=== PATIENT | male | born 1965 | race Caucasian/White ===

== ENCOUNTER 2021-05-14 08:43 | Outpatient (CLI) | payer BC | END 2021-05-14 08:44 | disposition home or self-care (01) | LOC: DTY/OP 08:43 | PROVIDERS: ATTEND Surgery | DX: M89.49 Other hypertrophic osteoarthropathy, multiple sites (principal); Z68.44 Body mass index [BMI] 60.0-69.9, adult | CPT/HCPCS: 97802 ==

== ENCOUNTER 2022-06-25 12:33 | Inpatient (IN) | payer BC ==
[2022-06-25] MEDS ORDERED: Magnesium 2 GM/50 ML BAG (IN WATER) ONE (12:54)
[2022-06-25 13:18] LABS: #Eosinphils 0.1 thou/uL (0.0-0.7); #Lymphocytes 0.6 thou/uL (1.20-3.40); #Monocytes 0.5 thou/uL (0.11-0.59); #Neutrophils 4.2 thou/uL (1.40-6.50); %Basophils 0.3 % (0.0-1.0); %Eosinophils 1.3 % (0.0-10.0); %Lymphocytes 11.6 % (21.0-51.0); %Neutrophils 77.8 % (42.0-75.0); Mean Corpuscular HGB CONC 32.6 g/dL (32.0-36.0); Mean Corpuscular Hemoglobin 30.6 pg (27.0-31.0); Mean Corpuscular Volume 93.8 fl (78.0-98.0); Mean Platelet Volume 7.4 fL (7.4-10.4); Platelet Count 245 10x3/uL (130-400); RBC Distribution Width 12.3 % (11.5-14.5); Red Blood Cell (RBC) Count 4.25 mill/uL (4.70-6.10); White Blood Cell (WBC) Count 5.4 10x3/uL (4.8-10.8)
[2022-06-25 13:41] LABS: ALT (SGPT) 16 U/L (8-55); AST (SGOT) 17 U/L (5-34); Albumin 3.4 g/dL (3.5-5.0); Alkaline Phosphatase 120 U/L (40-110); Anion Gap 15 mmol/L (10-20); BUN (Urea Nitrogen) 12 mg/dL (8.4-25.7); Bilirubin, Total 1.4 mg/dL (0.2-1.2); Calc. Creatinine Clearance 0 mL/min (70-130); Carbon Dioxide 26 mmol/L (22-29); Chloride 101 mmol/L (98-107); Estimated GFR 106; Globulin 2.8 g/dL (2.4-3.5); Glucose 109 mg/dL (70-105); Lipase 21 U/L (8-78); Magnesium 1.9 mg/dL (1.6-2.6); Potassium 3.6 mmol/L (3.5-5.1); Protein, Total 6.2 g/dL (6.0-8.3); Sodium 138 mmol/L (136-145)
[2022-06-25 13:43] LABS: INR-International Normal Ratio 1.1; Prothrombin Time 14.6 sec (12.0-14.7)
[2022-06-25 13:44] LABS: PTT 36.6 sec (22.9-36.1)
[2022-06-25] MEDS ORDERED: Diltiazem 125 MG/25 ML ONE (13:46)
[2022-06-25 14:06] LABS: CKMB 1.2 ng/mL (0-6.6)
[2022-06-25] MEDS ORDERED: Heparin 10,000 UNITS/ 10 ML VIAL ONE (14:07)
[2022-06-25] MEDS ORDERED: Heparin 25,000 units/D5W 500 ML ONE (14:07)
[2022-06-25] MEDS ORDERED: Aspirin Chewable 81 MG TAB ONE (14:07)
[2022-06-25] MEDS ORDERED: Diltiazem 125 MG in Sodium Chloride 0.9% 100 ML IVPB SCH (16:30)
[2022-06-25] MEDS ORDERED: Piperacillin/Tazobactam 3.375 GM in Sodium Chloride 0.9% 100 ML IVPB SCH (17:15)
[2022-06-25] MEDS ORDERED: Heparin 10,000 UNITS/ 10 ML VIAL SLOW IVP SCH (17:15)
[2022-06-25] MEDS ORDERED: Diltiazem HCl 125 MG, Admixture Fee 1 EACH in Sodium Chloride 0.9% 100 ML IVPB SCH (17:15)
[2022-06-25 17:52] LABS: Phosphorus 3.2 mg/dL (2.3-4.7)
[2022-06-25] MEDS ORDERED: Piperacillin/Tazobactam 4.5 GM in Sodium Chloride 0.9% 100 ML IVPB SCH (18:00)
[2022-06-25 18:12] LABS: Troponin I 0.339 ng/mL (< 0.028)
[2022-06-25] MEDS: Benzonatate 100 MG CAP PO PRN (20:51)
[2022-06-25] MEDS: rOPINIRole HCl 2 MG TAB PO SCH (20:51)
[2022-06-25] MEDS: Melatonin 3 MG TAB PO PRN (20:51)
[2022-06-25] MEDS: Piperacillin/Tazobactam 3.375 GM in Sodium Chloride 0.9% 100 ML IVPB SCH (23:36)
[2022-06-25] MEDS: Heparin 25,000 units/D5W 500 ML IV SCH (23:39)
[2022-06-26 04:50] LABS: #Eosinphils 0.1 thou/uL (0.0-0.7); #Lymphocytes 0.8 thou/uL (1.20-3.40); #Monocytes 0.7 thou/uL (0.11-0.59); #Neutrophils 5.4 thou/uL (1.40-6.50); %Basophils 0.3 % (0.0-1.0); %Eosinophils 1.8 % (0.0-10.0); %Lymphocytes 11.5 % (21.0-51.0); %Neutrophils 76.3 % (42.0-75.0); Hemoglobin 11.9 g/dL (14.0-18.0); Mean Corpuscular HGB CONC 32.3 g/dL (32.0-36.0); Mean Corpuscular Volume 92.9 fl (78.0-98.0); Mean Platelet Volume 7.4 fL (7.4-10.4); Platelet Count 220 10x3/uL (130-400); RBC Distribution Width 12.4 % (11.5-14.5); Red Blood Cell (RBC) Count 3.97 mill/uL (4.70-6.10); White Blood Cell (WBC) Count 7.1 10x3/uL (4.8-10.8)
[2022-06-26 05:10] LABS: ALT (SGPT) 15 U/L (8-55); AST (SGOT) 15 U/L (5-34); Albumin 3.2 g/dL (3.5-5.0); Alkaline Phosphatase 114 U/L (40-110); Anion Gap 13 mmol/L (10-20); BUN (Urea Nitrogen) 12 mg/dL (8.4-25.7); Bilirubin, Total 1.7 mg/dL (0.2-1.2); Calc. Creatinine Clearance 379 mL/min (70-130); Calcium 8.4 mg/dL (7.8-10.44); Carbon Dioxide 26 mmol/L (22-29); Cardiac Risk 2.5 (Less than 4.5); Chloride 102 mmol/L (98-107); Cholesterol 130 mg/dl (< 200 Desired); Estimated GFR 109; Globulin 2.1 g/dL (2.4-3.5); Glucose 115 mg/dL (70-105); HDL Cholesterol 51 mg/dL (>60 Neg Risk); LDL Cholesterol, Calculated 70 mg/dL; Potassium 3.5 mmol/L (3.5-5.1); Protein, Total 5.3 g/dL (6.0-8.3); Sodium 137 mmol/L (136-145); Triglycerides 43 mg/dL (Less than 150)
[2022-06-26] MEDS: Piperacillin/Tazobactam 3.375 GM in Sodium Chloride 0.9% 100 ML IVPB SCH (06:13)
[2022-06-26] MEDS ORDERED: Diclofenac 1% 100 GM GEL TP PRN (10:21)
[2022-06-26] MEDS: rOPINIRole HCl 2 MG TAB PO SCH ×2 (10:23→21:01)
[2022-06-26] MEDS: Heparin 25,000 units/D5W 500 ML IV SCH ×2 (10:23→23:38)
[2022-06-26] MEDS: Acetaminophen 325 MG TAB PO PRN (12:31)
[2022-06-26] MEDS ORDERED: Magnesium Sulfate 3 GM in Sodium Chloride 0.9% 100 ML IVPB SCH (13:15)
[2022-06-26] MEDS ORDERED: Empagliflozin 10 MG TAB PO SCH (14:00)
[2022-06-26] MEDS ORDERED: Potassium Chloride 20 MEQ TAB PO SCH (14:00)
[2022-06-26] MEDS: Benzonatate 100 MG CAP PO PRN ×2 (14:22→21:01)
[2022-06-26] MEDS: Amiodarone 200 MG TAB PO SCH ×2 (14:23→21:00)
[2022-06-26] MEDS ORDERED: Amiodarone 200 MG TAB PO SCH (15:00)
[2022-06-26] MEDS ORDERED: guaiFENesin ER 600 MG TAB PO SCH (18:00)
[2022-06-26] MEDS: Melatonin 3 MG TAB PO PRN (21:01)
[2022-06-26] MEDS ORDERED: Promethazine HCl 12.5 MG in Sodium Chloride 0.9% 50 ML IVPB PRN (22:43)
[2022-06-27 07:54] LABS: #Eosinphils 0.2 thou/uL (0.0-0.7); #Lymphocytes 0.7 thou/uL (1.20-3.40); #Monocytes 0.6 thou/uL (0.11-0.59); #Neutrophils 5.3 thou/uL (1.40-6.50); %Eosinophils 2.9 % (0.0-10.0); %Lymphocytes 9.9 % (21.0-51.0); %Monocytes 9.4 % (0.0-10.0); %Neutrophils 77.8 % (42.0-75.0); Mean Corpuscular HGB CONC 32.4 g/dL (32.0-36.0); Mean Corpuscular Hemoglobin 30.9 pg (27.0-31.0); Mean Corpuscular Volume 95.5 fl (78.0-98.0); Mean Platelet Volume 7.4 fL (7.4-10.4); Platelet Count 230 10x3/uL (130-400); RBC Distribution Width 12.5 % (11.5-14.5); Red Blood Cell (RBC) Count 4.22 mill/uL (4.70-6.10); White Blood Cell (WBC) Count 6.8 10x3/uL (4.8-10.8)
[2022-06-27 08:15] LABS: Anion Gap 12 mmol/L (10-20); BUN (Urea Nitrogen) 8 mg/dL (8.4-25.7); Calc. Creatinine Clearance 372 mL/min (70-130); Calcium 8.9 mg/dL (7.8-10.44); Carbon Dioxide 26 mmol/L (22-29); Chloride 103 mmol/L (98-107); Estimated GFR 110; Glucose 98 mg/dL (70-105); Magnesium 2.2 mg/dL (1.6-2.6); Phosphorus 3.5 mg/dL (2.3-4.7); Potassium 3.8 mmol/L (3.5-5.1); Sodium 137 mmol/L (136-145)
[2022-06-27] MEDS ORDERED: Diltiazem HCl 125 MG, Admixture Fee 1 EACH in Sodium Chloride 0.9% 100 ML IVPB SCH (08:25)
[2022-06-27] MEDS ORDERED: Potassium Chloride 20 MEQ TAB PO SCH ×2 (08:30→14:15)
[2022-06-27] MEDS ORDERED: guaiFENesin ER 600 MG TAB PO SCH (09:00)
[2022-06-27] MEDS: Cholecalciferol 1,000 UNITS (25 MCG) TAB PO SCH (09:29)
[2022-06-27] MEDS: Apixaban 5 MG TAB PO SCH ×2 (09:29→21:43)
[2022-06-27] MEDS: Cyanocobalamin (Vitamin B-12) 1,000 MCG TAB PO SCH (09:30)
[2022-06-27] MEDS: Amiodarone 200 MG TAB PO SCH ×3 (09:30→21:42)
[2022-06-27] MEDS: Benzonatate 100 MG CAP PO PRN ×2 (09:38→21:43)
[2022-06-27] MEDS: rOPINIRole HCl 2 MG TAB PO SCH ×2 (09:39→21:43)
[2022-06-27] MEDS ORDERED: Polyethylene Glycol 3350 17 GM Packet PO PRN (11:55)
[2022-06-27] MEDS ORDERED: Polyethylene Glycol 3350 17 GM Packet PO SCH (12:00)
[2022-06-27] MEDS: Empagliflozin 25 MG TAB PO SCH (12:43)
[2022-06-27] MEDS: Scopolamine 1.5 mg/72 hour Patch TD SCH (12:49)
[2022-06-27] MEDS: Diltiazem HCl 125 MG, Admixture Fee 1 EACH in Sodium Chloride 0.9% 100 ML IVPB SCH (13:41)
[2022-06-27] MEDS ORDERED: Furosemide 40 MG/4 ML VIAL SLOW IVP SCH (14:15)
[2022-06-27] MEDS: Acetaminophen 325 MG TAB PO PRN (21:42)
[2022-06-27] MEDS: Melatonin 3 MG TAB PO PRN (21:43)
[2022-06-28] MEDS: Diltiazem HCl 125 MG, Admixture Fee 1 EACH in Sodium Chloride 0.9% 100 ML IVPB SCH ×2 (03:03→20:35)
[2022-06-28 04:49] LABS: #Eosinphils 0.2 thou/uL (0.0-0.7); #Lymphocytes 0.7 thou/uL (1.20-3.40); #Monocytes 0.8 thou/uL (0.11-0.59); #Neutrophils 4.5 thou/uL (1.40-6.50); %Basophils 0.3 % (0.0-1.0); %Eosinophils 3.6 % (0.0-10.0); %Lymphocytes 11.7 % (21.0-51.0); %Monocytes 12.7 % (0.0-10.0); %Neutrophils 71.7 % (42.0-75.0); Hemoglobin 12.8 g/dL (14.0-18.0); Mean Corpuscular HGB CONC 31.8 g/dL (32.0-36.0); Mean Corpuscular Hemoglobin 30.1 pg (27.0-31.0); Mean Corpuscular Volume 94.8 fl (78.0-98.0); Mean Platelet Volume 7.2 fL (7.4-10.4); Platelet Count 237 10x3/uL (130-400); RBC Distribution Width 12.5 % (11.5-14.5); Red Blood Cell (RBC) Count 4.25 mill/uL (4.70-6.10); White Blood Cell (WBC) Count 6.3 10x3/uL (4.8-10.8)
[2022-06-28 05:09] LABS: Anion Gap 12 mmol/L (10-20); BUN (Urea Nitrogen) 9 mg/dL (8.4-25.7); Calc. Creatinine Clearance 367 mL/min (70-130); Carbon Dioxide 26 mmol/L (22-29); Chloride 102 mmol/L (98-107); Estimated GFR 109; Glucose 101 mg/dL (70-105); Magnesium 2.2 mg/dL (1.6-2.6); Potassium 4.2 mmol/L (3.5-5.1); Sodium 136 mmol/L (136-145)
[2022-06-28] MEDS: Furosemide 40 MG/4 ML VIAL SLOW IVP SCH ×2 (06:27→15:09)
[2022-06-28] MEDS: Potassium Chloride 20 MEQ TAB PO SCH ×2 (10:33→16:09)
[2022-06-28] MEDS: Cholecalciferol 1,000 UNITS (25 MCG) TAB PO SCH (10:34)
[2022-06-28] MEDS: Calcium Carbonate 500 MG ChewTAB PO SCH ×2 (10:34→20:24)
[2022-06-28] MEDS: Apixaban 5 MG TAB PO SCH ×2 (10:34→20:25)
[2022-06-28] MEDS: rOPINIRole HCl 2 MG TAB PO SCH ×2 (10:35→20:24)
[2022-06-28] MEDS: Cyanocobalamin (Vitamin B-12) 1,000 MCG TAB PO SCH (10:35)
[2022-06-28] MEDS: Famotidine 20 MG TAB PO SCH ×2 (10:35→20:25)
[2022-06-28] MEDS: Empagliflozin 25 MG TAB PO SCH (10:35)
[2022-06-28] MEDS: Amiodarone 200 MG TAB PO SCH ×3 (10:48→20:24)
[2022-06-28] MEDS ORDERED: diphenhydrAMINE 25 MG CAP PO PRN (16:19)
[2022-06-28] MEDS ORDERED: Promethazine 25 MG TAB PO PRN (17:14)
[2022-06-28] MEDS ORDERED: FLU VACC QS2022-23(6MOS UP)/PF 60 MCG/0.5 ML SYRINGE IM ONE (18:00)
[2022-06-28] MEDS: Melatonin 3 MG TAB PO PRN (20:25)
[2022-06-28] MEDS: Benzonatate 100 MG CAP PO PRN (20:27)
[2022-06-29 05:19] LABS: #Eosinphils 0.5 thou/uL (0.0-0.7); #Lymphocytes 0.9 thou/uL (1.20-3.40); #Monocytes 0.7 thou/uL (0.11-0.59); #Neutrophils 4.2 thou/uL (1.40-6.50); %Basophils 0.2 % (0.0-1.0); %Eosinophils 7.3 % (0.0-10.0); %Lymphocytes 14.2 % (21.0-51.0); %Monocytes 11.4 % (0.0-10.0); %Neutrophils 66.9 % (42.0-75.0); Hemoglobin 13.5 g/dL (14.0-18.0); Mean Corpuscular HGB CONC 31.9 g/dL (32.0-36.0); Mean Corpuscular Hemoglobin 30.1 pg (27.0-31.0); Mean Corpuscular Volume 94.2 fl (78.0-98.0); Mean Platelet Volume 7.5 fL (7.4-10.4); Platelet Count 276 10x3/uL (130-400); RBC Distribution Width 12.4 % (11.5-14.5); Red Blood Cell (RBC) Count 4.49 mill/uL (4.70-6.10); White Blood Cell (WBC) Count 6.2 10x3/uL (4.8-10.8)
[2022-06-29] MEDS: Benzonatate 100 MG CAP PO PRN ×3 (05:22→20:47)
[2022-06-29] MEDS: Furosemide 40 MG/4 ML VIAL SLOW IVP SCH ×2 (05:22→15:32)
[2022-06-29 05:31] LABS: Anion Gap 14 mmol/L (10-20); BUN (Urea Nitrogen) 9 mg/dL (8.4-25.7); Calc. Creatinine Clearance 361 mL/min (70-130); Calcium 9.3 mg/dL (7.8-10.44); Carbon Dioxide 27 mmol/L (22-29); Chloride 100 mmol/L (98-107); Estimated GFR 109; Glucose 109 mg/dL (70-105); Magnesium 2.1 mg/dL (1.6-2.6); Potassium 3.9 mmol/L (3.5-5.1); Sodium 137 mmol/L (136-145)
[2022-06-29 05:45] LABS: Phosphorus 3.9 mg/dL (2.3-4.7)
[2022-06-29] MEDS: Cyanocobalamin (Vitamin B-12) 1,000 MCG TAB PO SCH (08:46)
[2022-06-29] MEDS: Diltiazem HCl 125 MG, Admixture Fee 1 EACH in Sodium Chloride 0.9% 100 ML IVPB SCH ×3 (08:46→21:45)
[2022-06-29] MEDS: Potassium Chloride 20 MEQ TAB PO SCH ×2 (08:47→17:34)
[2022-06-29] MEDS: rOPINIRole HCl 2 MG TAB PO SCH ×2 (08:47→20:44)
[2022-06-29] MEDS: Apixaban 5 MG TAB PO SCH ×2 (08:47→20:44)
[2022-06-29] MEDS: Cholecalciferol 1,000 UNITS (25 MCG) TAB PO SCH (08:47)
[2022-06-29] MEDS: Famotidine 20 MG TAB PO SCH ×2 (08:47→20:43)
[2022-06-29] MEDS: Amiodarone 200 MG TAB PO SCH ×3 (08:47→20:44)
[2022-06-29] MEDS: Empagliflozin 25 MG TAB PO SCH (08:47)
[2022-06-29] MEDS: Calcium Carbonate 500 MG ChewTAB PO SCH ×2 (08:50→20:44)
[2022-06-29] MEDS: Melatonin 3 MG TAB PO PRN (20:44)
[2022-06-30 05:13] LABS: Anion Gap 13 mmol/L (10-20); BUN (Urea Nitrogen) 10 mg/dL (8.4-25.7); Calc. Creatinine Clearance 342 mL/min (70-130); Calcium 9.4 mg/dL (7.8-10.44); Carbon Dioxide 29 mmol/L (22-29); Chloride 99 mmol/L (98-107); Estimated GFR 107; Glucose 99 mg/dL (70-105); Potassium 4.2 mmol/L (3.5-5.1); Sodium 137 mmol/L (136-145)
[2022-06-30] MEDS: Furosemide 40 MG/4 ML VIAL SLOW IVP SCH ×2 (05:44→14:17)
[2022-06-30] MEDS: Potassium Chloride 20 MEQ TAB PO SCH ×2 (09:25→16:53)
[2022-06-30] MEDS: Amiodarone 200 MG TAB PO SCH ×3 (09:25→22:30)
[2022-06-30] MEDS: Famotidine 20 MG TAB PO SCH ×2 (09:26→22:30)
[2022-06-30] MEDS: Apixaban 5 MG TAB PO SCH ×2 (09:26→22:30)
[2022-06-30] MEDS: Calcium Carbonate 500 MG ChewTAB PO SCH ×2 (09:26→22:29)
[2022-06-30] MEDS: Empagliflozin 25 MG TAB PO SCH (09:27)
[2022-06-30] MEDS: Cyanocobalamin (Vitamin B-12) 1,000 MCG TAB PO SCH (09:27)
[2022-06-30] MEDS: Cholecalciferol 1,000 UNITS (25 MCG) TAB PO SCH (09:27)
[2022-06-30] MEDS: rOPINIRole HCl 2 MG TAB PO SCH ×2 (09:33→22:29)
[2022-06-30] MEDS: Diltiazem HCl 125 MG, Admixture Fee 1 EACH in Sodium Chloride 0.9% 100 ML IVPB SCH (10:00)
[2022-06-30] MEDS: Benzonatate 100 MG CAP PO PRN ×2 (11:53→22:30)
[2022-06-30] MEDS: Scopolamine 1.5 mg/72 hour Patch TD SCH (14:16)
[2022-06-30] MEDS: Promethazine 25 MG TAB PO PRN (22:30)
[2022-06-30] MEDS: Melatonin 3 MG TAB PO PRN (22:30)
[2022-07-01 05:36] LABS: Anion Gap 13 mmol/L (10-20); BUN (Urea Nitrogen) 11 mg/dL (8.4-25.7); Calc. Creatinine Clearance 342 mL/min (70-130); Calcium 9.2 mg/dL (7.8-10.44); Carbon Dioxide 29 mmol/L (22-29); Chloride 99 mmol/L (98-107); Estimated GFR 107; Glucose 103 mg/dL (70-105); Potassium 4.1 mmol/L (3.5-5.1); Sodium 137 mmol/L (136-145)
[2022-07-01] MEDS: Furosemide 40 MG/4 ML VIAL SLOW IVP SCH ×2 (06:03→15:15)
[2022-07-01] MEDS: Apixaban 5 MG TAB PO SCH ×2 (10:05→21:55)
[2022-07-01] MEDS: Potassium Chloride 20 MEQ TAB PO SCH ×2 (10:05→16:42)
[2022-07-01] MEDS: Cyanocobalamin (Vitamin B-12) 1,000 MCG TAB PO SCH (10:06)
[2022-07-01] MEDS: Calcium Carbonate 500 MG ChewTAB PO SCH ×2 (10:06→21:55)
[2022-07-01] MEDS: rOPINIRole HCl 2 MG TAB PO SCH ×2 (10:08→21:55)
[2022-07-01] MEDS: Empagliflozin 10 MG TAB PO SCH (10:08)
[2022-07-01] MEDS: Cholecalciferol 1,000 UNITS (25 MCG) TAB PO SCH (10:09)
[2022-07-01] MEDS: Famotidine 20 MG TAB PO SCH ×2 (10:09→21:55)
[2022-07-01] MEDS: Empagliflozin 25 MG TAB PO SCH (10:12)
[2022-07-01] MEDS: Amiodarone 200 MG TAB PO SCH ×2 (15:15→21:54)
[2022-07-01] MEDS: Promethazine 25 MG TAB PO PRN (16:43)
[2022-07-01] MEDS: Melatonin 3 MG TAB PO PRN (21:58)
[2022-07-02 05:49] LABS: Anion Gap 13 mmol/L (10-20); BUN (Urea Nitrogen) 15 mg/dL (8.4-25.7); Calc. Creatinine Clearance 297 mL/min (70-130); Carbon Dioxide 26 mmol/L (22-29); Chloride 101 mmol/L (98-107); Estimated GFR 102; Glucose 140 mg/dL (70-105); Potassium 4.1 mmol/L (3.5-5.1); Sodium 136 mmol/L (136-145)
[2022-07-02] MEDS: Furosemide 40 MG/4 ML VIAL SLOW IVP SCH ×2 (06:23→15:13)
[2022-07-02] MEDS: Amiodarone 200 MG TAB PO SCH ×3 (09:28→21:01)
[2022-07-02] MEDS: Apixaban 5 MG TAB PO SCH ×2 (09:28→21:01)
[2022-07-02] MEDS: Famotidine 20 MG TAB PO SCH ×2 (09:28→21:00)
[2022-07-02] MEDS: rOPINIRole HCl 2 MG TAB PO SCH ×2 (09:28→21:00)
[2022-07-02] MEDS: Empagliflozin 10 MG TAB PO SCH (09:28)
[2022-07-02] MEDS: Cholecalciferol 1,000 UNITS (25 MCG) TAB PO SCH (09:29)
[2022-07-02] MEDS: Cyanocobalamin (Vitamin B-12) 1,000 MCG TAB PO SCH (09:29)
[2022-07-02] MEDS: Potassium Chloride 20 MEQ TAB PO SCH ×2 (09:29→17:28)
[2022-07-02] MEDS: Calcium Carbonate 500 MG ChewTAB PO SCH ×2 (09:29→21:00)
[2022-07-02 16:34] VITALS: BMI 58.0
[2022-07-02] MEDS: Promethazine 25 MG TAB PO PRN (21:01)
[2022-07-03 05:03] LABS: Anion Gap 14 mmol/L (10-20); BUN (Urea Nitrogen) 17 mg/dL (8.4-25.7); Calc. Creatinine Clearance 259 mL/min (70-130); Calcium 9.1 mg/dL (7.8-10.44); Carbon Dioxide 26 mmol/L (22-29); Chloride 101 mmol/L (98-107); Estimated GFR 100; Glucose 105 mg/dL (70-105); Potassium 4.4 mmol/L (3.5-5.1); Sodium 137 mmol/L (136-145)
[2022-07-03] MEDS ORDERED: Ketamine 50 MG/ML (10ML VIAL) ONE (07:13)
[2022-07-03] MEDS ORDERED: Dexmedetomidine 200 MCG/2 ML VIAL ONE (07:13)
[2022-07-03] MEDS ORDERED: Midazolam HCl 2 mg/2 ml Vial ONE (07:13)
[2022-07-03] MEDS: Apixaban 5 MG TAB PO SCH ×2 (08:00→20:55)
[2022-07-03] MEDS: Calcium Carbonate 500 MG ChewTAB PO SCH ×2 (08:00→20:56)
[2022-07-03] MEDS: Cyanocobalamin (Vitamin B-12) 1,000 MCG TAB PO SCH (08:00)
[2022-07-03] MEDS: rOPINIRole HCl 2 MG TAB PO SCH ×2 (08:00→20:56)
[2022-07-03] MEDS: Famotidine 20 MG TAB PO SCH ×2 (08:00→20:55)
[2022-07-03] MEDS: Amiodarone 200 MG TAB PO SCH ×3 (08:00→20:55)
[2022-07-03] MEDS: Potassium Chloride 20 MEQ TAB PO SCH ×2 (08:00→16:46)
[2022-07-03] MEDS: Empagliflozin 10 MG TAB PO SCH (08:00)
[2022-07-03] MEDS: Cholecalciferol 1,000 UNITS (25 MCG) TAB PO SCH (08:00)
[2022-07-03] MEDS ORDERED: PROPOFOL 200 MG/20 ML VIAL ONE (08:04)
[2022-07-03] MEDS: Scopolamine 1.5 mg/72 hour Patch TD SCH (13:00)
[2022-07-03] MEDS ORDERED: Furosemide 40 MG/4 ML VIAL SLOW IVP SCH (14:00)
[2022-07-03] MEDS ORDERED: Diltiazem 125 MG in Sodium Chloride 0.9% 100 ML IVPB SCH ×2 (16:30→21:00)
[2022-07-03] MEDS ORDERED: Carvedilol 3.125 MG TAB PO SCH (17:00)
[2022-07-03] MEDS: Promethazine 25 MG TAB PO PRN (20:55)
[2022-07-03] MEDS: Melatonin 3 MG TAB PO PRN (20:55)
[2022-07-04 05:05] LABS: Anion Gap 12 mmol/L (10-20); BUN (Urea Nitrogen) 20 mg/dL (8.4-25.7); Calc. Creatinine Clearance 262 mL/min (70-130); Calcium 8.9 mg/dL (7.8-10.44); Carbon Dioxide 31 mmol/L (22-29); Chloride 98 mmol/L (98-107); Estimated GFR 101; Glucose 107 mg/dL (70-105); Potassium 4.3 mmol/L (3.5-5.1); Sodium 137 mmol/L (136-145)
[2022-07-04] MEDS ORDERED: Furosemide 20 MG/2 ML VIAL SLOW IVP SCH (06:00)
[2022-07-04] MEDS: Cyanocobalamin (Vitamin B-12) 1,000 MCG TAB PO SCH (08:37)
[2022-07-04] MEDS: Calcium Carbonate 500 MG ChewTAB PO SCH ×2 (08:37→21:29)
[2022-07-04] MEDS: Apixaban 5 MG TAB PO SCH ×2 (08:37→21:29)
[2022-07-04] MEDS: Carvedilol 3.125 MG TAB PO SCH ×2 (08:37→16:27)
[2022-07-04] MEDS: Amiodarone 200 MG TAB PO SCH ×3 (08:38→21:29)
[2022-07-04] MEDS: Famotidine 20 MG TAB PO SCH ×2 (08:38→21:29)
[2022-07-04] MEDS: Empagliflozin 10 MG TAB PO SCH (08:38)
[2022-07-04] MEDS: Potassium Chloride 20 MEQ TAB PO SCH ×2 (08:39→16:27)
[2022-07-04] MEDS: Furosemide 40 MG TAB PO SCH (08:39)
[2022-07-04] MEDS: Cholecalciferol 1,000 UNITS (25 MCG) TAB PO SCH (08:39)
[2022-07-04] MEDS: Lisinopril 5 MG TAB PO SCH (08:39)
[2022-07-04] MEDS: rOPINIRole HCl 2 MG TAB PO SCH ×2 (08:39→21:29)
[2022-07-04] MEDS ORDERED: Diltiazem 125 MG in Sodium Chloride 0.9% 100 ML IVPB SCH (10:11)
[2022-07-04] MEDS: Promethazine 25 MG TAB PO PRN (19:35)
[2022-07-05 05:21] LABS: Anion Gap 11 mmol/L (10-20); BUN (Urea Nitrogen) 18 mg/dL (8.4-25.7); Calc. Creatinine Clearance 285 mL/min (70-130); Calcium 8.7 mg/dL (7.8-10.44); Carbon Dioxide 28 mmol/L (22-29); Chloride 100 mmol/L (98-107); Estimated GFR 103; Glucose 114 mg/dL (70-105); Potassium 4.4 mmol/L (3.5-5.1); Sodium 135 mmol/L (136-145)
[2022-07-05] MEDS: Lisinopril 5 MG TAB PO SCH (09:20)
[2022-07-05] MEDS: Apixaban 5 MG TAB PO SCH (09:20)
[2022-07-05] MEDS: Amiodarone 200 MG TAB PO SCH ×2 (09:20→15:58)
[2022-07-05] MEDS: Benzonatate 100 MG CAP PO PRN ×2 (09:21→15:58)
[2022-07-05] MEDS: Furosemide 40 MG TAB PO SCH (09:21)
[2022-07-05] MEDS: Carvedilol 3.125 MG TAB PO SCH (09:21)
[2022-07-05] MEDS: rOPINIRole HCl 2 MG TAB PO SCH (09:21)
[2022-07-05] MEDS: Empagliflozin 10 MG TAB PO SCH (09:21)
[2022-07-05] MEDS: Famotidine 20 MG TAB PO SCH (09:21)
[2022-07-05] MEDS: Potassium Chloride 20 MEQ TAB PO SCH (09:22)
[2022-07-05] MEDS: Cholecalciferol 1,000 UNITS (25 MCG) TAB PO SCH (09:22)
[2022-07-05] MEDS: Cyanocobalamin (Vitamin B-12) 1,000 MCG TAB PO SCH (09:22)
[2022-07-05] MEDS: Calcium Carbonate 500 MG ChewTAB PO SCH (09:22)
[2022-07-05 15:57] VITALS: BP 118/79; TEMP 97.6
== END 2022-07-05 17:00 | disposition home or self-care (01) | DRG 280 ==
LOC: ERS 12:33 → 2NO 15:13 → OBSVTOIN 15:13
PROVIDERS: ADMIT Family Medicine; ATTEND Family Medicine
PROC: 5A2204Z Restoration of Cardiac Rhythm, Single (ICD-10-PCS; principal; 2022-07-03)
PROC: B246ZZ4 Ultrasonography of Right and Left Heart, Transesophageal (ICD-10-PCS; 2022-07-04)
DX: I48.19 Other persistent atrial fibrillation (principal); I21.A1 Myocardial infarction type 2; I50.43 Acute on chronic combined systolic (congestive) and diastolic (congestive) heart failure; J69.0 Pneumonitis due to inhalation of food and vomit; Z68.43 Body mass index [BMI] 50.0-59.9, adult; T84.54XA Infection and inflammatory reaction due to internal left knee prosthesis, initial encounter; T84.53XA Infection and inflammatory reaction due to internal right knee prosthesis, initial encounter; Z96.652 Presence of left artificial knee joint; E66.01 Morbid (severe) obesity due to excess calories; F32.9 Major depressive disorder, single episode, unspecified; K21.9 Gastro-esophageal reflux disease without esophagitis; Z96.642 Presence of left artificial hip joint; E87.6 Hypokalemia; I08.1 Rheumatic disorders of both mitral and tricuspid valves; Z20.822 Contact with and (suspected) exposure to COVID-19; I11.0 Hypertensive heart disease with heart failure; Y83.8 Other surgical procedures as the cause of abnormal reaction of the patient, or of later complication, without mention of misadventure at the time of the procedure; Z79.899 Other long term (current) drug therapy
CPT/HCPCS: 36415; 71045; 80048; 80053; 80061; 82553; 83036; 83690; 83735; 83880; 84100; 84145; 84443; 84484; 85025; 85610; 85730; 87040; 87070; 87205; 87804; 87811; 92960; 93005; 93010; 93306; 93312; 93970; 96374; 96375; J1644; J1940; J2250; J2543; J2550; J2704; J3475; J3490; Q0169; U0003; U0005

== ENCOUNTER 2022-07-29 22:35 | Inpatient (IN) | payer BC ==
[2022-07-29 23:03] LABS: #Eosinphils 0.5 thou/uL (0.0-0.7); #Monocytes 0.6 thou/uL (0.11-0.59); #Neutrophils 3.9 thou/uL (1.40-6.50); %Basophils 0.5 % (0.0-1.0); %Eosinophils 8.5 % (0.0-10.0); %Lymphocytes 15.9 % (21.0-51.0); %Monocytes 10.5 % (0.0-10.0); %Neutrophils 64.5 % (42.0-75.0); Hemoglobin 13.5 g/dL (14.0-18.0); Mean Corpuscular HGB CONC 32.4 g/dL (32.0-36.0); Mean Corpuscular Hemoglobin 29.3 pg (27.0-31.0); Mean Corpuscular Volume 90.4 fl (78.0-98.0); Mean Platelet Volume 7.1 fL (7.4-10.4); Platelet Count 239 10x3/uL (130-400); RBC Distribution Width 13.1 % (11.5-14.5); Red Blood Cell (RBC) Count 4.61 mill/uL (4.70-6.10)
[2022-07-30 00:04] LABS: ALT (SGPT) 20 U/L (8-55); AST (SGOT) 21 U/L (5-34); Albumin 3.6 g/dL (3.5-5.0); Alkaline Phosphatase 146 U/L (40-110); Anion Gap 15 mmol/L (10-20); BUN (Urea Nitrogen) 20 mg/dL (8.4-25.7); Bilirubin, Total 0.6 mg/dL (0.2-1.2); CK (CPK) 30 U/L (30-200); Calc. Creatinine Clearance 0 mL/min (70-130); Calcium 8.6 mg/dL (7.8-10.44); Carbon Dioxide 23 mmol/L (22-29); Chloride 105 mmol/L (98-107); Estimated GFR 98; Globulin 2.5 g/dL (2.4-3.5); Glucose 108 mg/dL (70-105); Lipase 33 U/L (8-78); Potassium 4.1 mmol/L (3.5-5.1); Protein, Total 6.1 g/dL (6.0-8.3); Sodium 139 mmol/L (136-145)
[2022-07-30] MEDS ORDERED: Nitroglycerin 0.4 MG TAB (25 Tab Bottle) SL PRN (02:03)
[2022-07-30 02:16] LABS: Troponin I 0.028 ng/mL (< 0.028)
[2022-07-30] MEDS ORDERED: Furosemide 40 MG/4 ML VIAL SLOW IVP SCH ×3 (04:15→17:15)
[2022-07-30 04:29] LABS: SARS-CoV-2 NAA Rapid Test Not Detected (NotDetected)
[2022-07-30] MEDS ORDERED: Furosemide 40 MG/4 ML VIAL ONE ×2 (05:16→11:39)
[2022-07-30 06:44] LABS: Troponin I 0.019 ng/mL (< 0.028)
[2022-07-30 07:45] VITALS: BMI 61.0
[2022-07-30] MEDS: Lisinopril 5 MG TAB PO SCH (08:41)
[2022-07-30] MEDS: Empagliflozin 10 MG TAB PO SCH (08:41)
[2022-07-30] MEDS: Pramipexole Di-HCl 0.25 MG TAB PO SCH (08:42)
[2022-07-30] MEDS ORDERED: Amiodarone 200 MG TAB PO SCH (09:00)
[2022-07-30] MEDS ORDERED: Enoxaparin Sodium 40 MG/0.4 ML SYRINGE SC SCH (09:00)
[2022-07-30] MEDS: Apixaban 5 MG TAB PO SCH ×2 (10:25→23:09)
[2022-07-30 18:58] LABS: Anion Gap 12 mmol/L (10-20); BUN (Urea Nitrogen) 17 mg/dL (8.4-25.7); Calc. Creatinine Clearance 231 mL/min (70-130); Calcium 8.6 mg/dL (7.8-10.44); Carbon Dioxide 29 mmol/L (22-29); Chloride 102 mmol/L (98-107); Estimated GFR 85; Glucose 94 mg/dL (70-105); Phosphorus 4.1 mg/dL (2.3-4.7); Potassium 3.8 mmol/L (3.5-5.1); Sodium 139 mmol/L (136-145)
[2022-07-30] MEDS: Moisturizing Cream (Eucerin) 113 GM JAR TOP SCH ×2 (23:07→23:10)
[2022-07-30] MEDS: Amiodarone 200 MG TAB PO SCH (23:09)
[2022-07-31 04:44] LABS: #Eosinphils 0.4 thou/uL (0.0-0.7); #Lymphocytes 0.8 thou/uL (1.20-3.40); #Monocytes 0.7 thou/uL (0.11-0.59); #Neutrophils 3.8 thou/uL (1.40-6.50); %Basophils 0.5 % (0.0-1.0); %Eosinophils 6.4 % (0.0-10.0); %Lymphocytes 14.5 % (21.0-51.0); %Monocytes 12.9 % (0.0-10.0); %Neutrophils 65.7 % (42.0-75.0); Hemoglobin 13.5 g/dL (14.0-18.0); Mean Corpuscular HGB CONC 33.2 g/dL (32.0-36.0); Mean Corpuscular Hemoglobin 29.8 pg (27.0-31.0); Mean Corpuscular Volume 89.8 fl (78.0-98.0); Mean Platelet Volume 7.3 fL (7.4-10.4); Platelet Count 222 10x3/uL (130-400); RBC Distribution Width 13.1 % (11.5-14.5); Red Blood Cell (RBC) Count 4.54 mill/uL (4.70-6.10); White Blood Cell (WBC) Count 5.7 10x3/uL (4.8-10.8)
[2022-07-31 05:04] LABS: Phosphorus 3.7 mg/dL (2.3-4.7)
[2022-07-31 05:08] LABS: Anion Gap 12 mmol/L (10-20); BUN (Urea Nitrogen) 17 mg/dL (8.4-25.7); Calc. Creatinine Clearance 287 mL/min (70-130); Calcium 8.8 mg/dL (7.8-10.44); Carbon Dioxide 29 mmol/L (22-29); Chloride 100 mmol/L (98-107); Estimated GFR 103; Glucose 119 mg/dL (70-105); Magnesium 2.2 mg/dL (1.6-2.6); Potassium 3.8 mmol/L (3.5-5.1); Sodium 137 mmol/L (136-145)
[2022-07-31] MEDS ORDERED: Furosemide 40 MG TAB PO SCH (07:30)
[2022-07-31] MEDS ORDERED: Potassium Chloride 20 MEQ TAB PO SCH (09:45)
[2022-07-31] MEDS ORDERED: Furosemide 40 MG/4 ML VIAL SLOW IVP SCH ×2 (09:45→20:00)
[2022-07-31] MEDS: Empagliflozin 10 MG TAB PO SCH (10:08)
[2022-07-31] MEDS: Apixaban 5 MG TAB PO SCH ×2 (10:08→21:20)
[2022-07-31] MEDS: Aspirin Chewable 81 MG TAB PO SCH (10:08)
[2022-07-31] MEDS: Amiodarone 200 MG TAB PO SCH ×2 (10:09→21:20)
[2022-07-31] MEDS: Lisinopril 5 MG TAB PO SCH (10:09)
[2022-07-31] MEDS: Moisturizing Cream (Eucerin) 113 GM JAR TOP SCH ×2 (10:09→21:20)
[2022-07-31] MEDS: Pramipexole Di-HCl 0.25 MG TAB PO SCH ×2 (11:15→21:19)
[2022-07-31 15:31] LABS: Phosphorus 3.9 mg/dL (2.3-4.7)
[2022-07-31 15:33] LABS: Anion Gap 14 mmol/L (10-20); BUN (Urea Nitrogen) 18 mg/dL (8.4-25.7); Calc. Creatinine Clearance 248 mL/min (70-130); Calcium 9.1 mg/dL (7.8-10.44); Carbon Dioxide 27 mmol/L (22-29); Chloride 100 mmol/L (98-107); Estimated GFR 93; Glucose 116 mg/dL (70-105); Magnesium 2.1 mg/dL (1.6-2.6); Potassium 4.1 mmol/L (3.5-5.1); Sodium 137 mmol/L (136-145)
[2022-07-31] MEDS: Carvedilol 6.25 MG TAB PO SCH (17:58)
[2022-07-31] MEDS ORDERED: Melatonin 3 MG TAB PO SCH (20:20)
[2022-08-01 05:34] LABS: Anion Gap 11 mmol/L (10-20); BUN (Urea Nitrogen) 20 mg/dL (8.4-25.7); Calc. Creatinine Clearance 297 mL/min (70-130); Calcium 8.9 mg/dL (7.8-10.44); Carbon Dioxide 28 mmol/L (22-29); Chloride 103 mmol/L (98-107); Estimated GFR 103; Glucose 99 mg/dL (70-105); Potassium 4.1 mmol/L (3.5-5.1); Sodium 138 mmol/L (136-145)
[2022-08-01 07:36] LABS: Magnesium 2.2 mg/dL (1.6-2.6); Phosphorus 3.9 mg/dL (2.3-4.7)
[2022-08-01] MEDS ORDERED: Ketamine 50 MG/ML (10ML VIAL) ONE (08:39)
[2022-08-01] MEDS ORDERED: Midazolam HCl 2 mg/2 ml Vial ONE (08:39)
[2022-08-01] MEDS ORDERED: PROPOFOL 200 MG/20 ML VIAL ONE (08:46)
[2022-08-01] MEDS: Carvedilol 6.25 MG TAB PO SCH ×2 (09:57→17:47)
[2022-08-01] MEDS: Empagliflozin 10 MG TAB PO SCH (09:58)
[2022-08-01] MEDS: Aspirin Chewable 81 MG TAB PO SCH (09:58)
[2022-08-01] MEDS: Apixaban 5 MG TAB PO SCH ×2 (09:58→20:59)
[2022-08-01] MEDS: Lisinopril 5 MG TAB PO SCH (09:58)
[2022-08-01] MEDS: Moisturizing Cream (Eucerin) 113 GM JAR TOP SCH ×2 (10:01→20:59)
[2022-08-01] MEDS: Amiodarone 200 MG TAB PO SCH ×3 (10:10→20:59)
[2022-08-01 11:56] LABS: #Eosinphils 0.3 thou/uL (0.0-0.7); #Lymphocytes 0.7 thou/uL (1.20-3.40); #Monocytes 0.5 thou/uL (0.11-0.59); #Neutrophils 3.4 thou/uL (1.40-6.50); %Basophils 0.4 % (0.0-1.0); %Eosinophils 6.1 % (0.0-10.0); %Lymphocytes 13.4 % (21.0-51.0); %Monocytes 10.9 % (0.0-10.0); %Neutrophils 69.1 % (42.0-75.0); Mean Corpuscular HGB CONC 32.3 g/dL (32.0-36.0); Mean Corpuscular Hemoglobin 29.7 pg (27.0-31.0); Mean Corpuscular Volume 91.9 fl (78.0-98.0); Mean Platelet Volume 7.1 fL (7.4-10.4); Platelet Count 229 10x3/uL (130-400); RBC Distribution Width 13.1 % (11.5-14.5); Red Blood Cell (RBC) Count 4.37 mill/uL (4.70-6.10); White Blood Cell (WBC) Count 4.9 10x3/uL (4.8-10.8)
[2022-08-01] MEDS ORDERED: Furosemide 40 MG/4 ML VIAL SLOW IVP SCH (16:00)
[2022-08-01] MEDS: Pramipexole Di-HCl 0.25 MG TAB PO SCH (20:59)
[2022-08-01] MEDS ORDERED: Melatonin 3 MG TAB PO PRN (21:39)
[2022-08-01] MEDS ORDERED: Melatonin 3 MG TAB PO SCH (22:00)
[2022-08-02 05:07] LABS: #Eosinphils 0.4 thou/uL (0.0-0.7); #Lymphocytes 0.8 thou/uL (1.20-3.40); #Monocytes 0.7 thou/uL (0.11-0.59); #Neutrophils 3.9 thou/uL (1.40-6.50); %Basophils 0.1 % (0.0-1.0); %Lymphocytes 13.9 % (21.0-51.0); %Monocytes 12.6 % (0.0-10.0); %Neutrophils 66.5 % (42.0-75.0); Hemoglobin 14.5 g/dL (14.0-18.0); Mean Corpuscular HGB CONC 30.6 g/dL (32.0-36.0); Mean Corpuscular Hemoglobin 28.9 pg (27.0-31.0); Mean Corpuscular Volume 94.4 fl (78.0-98.0); Mean Platelet Volume 7.7 fL (7.4-10.4); Platelet Count 207 10x3/uL (130-400); RBC Distribution Width 13.3 % (11.5-14.5); Red Blood Cell (RBC) Count 5.01 mill/uL (4.70-6.10); White Blood Cell (WBC) Count 5.8 10x3/uL (4.8-10.8)
[2022-08-02 07:20] LABS: Anion Gap 13 mmol/L (10-20); BUN (Urea Nitrogen) 17 mg/dL (8.4-25.7); Calc. Creatinine Clearance 312 mL/min (70-130); Calcium 8.9 mg/dL (7.8-10.44); Carbon Dioxide 27 mmol/L (22-29); Chloride 100 mmol/L (98-107); Estimated GFR 106; Glucose 93 mg/dL (70-105); Potassium 4.2 mmol/L (3.5-5.1); Sodium 136 mmol/L (136-145)
[2022-08-02] MEDS: Empagliflozin 10 MG TAB PO SCH (08:27)
[2022-08-02] MEDS: Aspirin Chewable 81 MG TAB PO SCH (08:27)
[2022-08-02] MEDS: Carvedilol 6.25 MG TAB PO SCH ×2 (08:27→16:36)
[2022-08-02] MEDS: Apixaban 5 MG TAB PO SCH ×2 (08:27→20:52)
[2022-08-02] MEDS: Amiodarone 200 MG TAB PO SCH ×3 (08:27→20:52)
[2022-08-02] MEDS: Lisinopril 5 MG TAB PO SCH (08:27)
[2022-08-02] MEDS: Moisturizing Cream (Eucerin) 113 GM JAR TOP SCH ×2 (08:28→20:55)
[2022-08-02] MEDS ORDERED: Furosemide 40 MG/4 ML VIAL SLOW IVP SCH (11:15)
[2022-08-02] MEDS ORDERED: Furosemide 20 MG TAB PO SCH (14:30)
[2022-08-02] MEDS: Pramipexole Di-HCl 0.25 MG TAB PO SCH (20:52)
[2022-08-03 05:27] LABS: Anion Gap 13 mmol/L (10-20); BUN (Urea Nitrogen) 17 mg/dL (8.4-25.7); Calc. Creatinine Clearance 296 mL/min (70-130); Calcium 8.9 mg/dL (7.8-10.44); Carbon Dioxide 27 mmol/L (22-29); Chloride 102 mmol/L (98-107); Estimated GFR 104; Glucose 124 mg/dL (70-105); Potassium 3.8 mmol/L (3.5-5.1); Sodium 138 mmol/L (136-145)
[2022-08-03] MEDS ORDERED: Furosemide 40 MG TAB PO SCH (07:30)
[2022-08-03 11:29] VITALS: BP 115/72; TEMP 98.2
[2022-08-03] MEDS: Carvedilol 6.25 MG TAB PO SCH (11:34)
[2022-08-03] MEDS: Moisturizing Cream (Eucerin) 113 GM JAR TOP SCH (11:35)
[2022-08-03] MEDS: Empagliflozin 10 MG TAB PO SCH (11:35)
[2022-08-03] MEDS: Apixaban 5 MG TAB PO SCH (11:35)
[2022-08-03] MEDS: Amiodarone 200 MG TAB PO SCH (11:35)
[2022-08-03] MEDS: Lisinopril 5 MG TAB PO SCH (11:35)
[2022-08-03] MEDS: Aspirin Chewable 81 MG TAB PO SCH (11:36)
== END 2022-08-03 12:50 | disposition home or self-care (01) | DRG 291 ==
LOC: ERS 22:35 → ERHOLD 07-30 00:56 → 2NO 07-30 18:24 → OBSVTOIN 07-31 12:50
PROVIDERS: ADMIT Family Medicine; ATTEND Family Medicine
PROC: B24BZZ4 Ultrasonography of Heart with Aorta, Transesophageal (ICD-10-PCS; principal; 2022-08-01)
PROC: 5A2204Z Restoration of Cardiac Rhythm, Single (ICD-10-PCS; 2022-08-03)
DX: I11.0 Hypertensive heart disease with heart failure (principal); I50.43 Acute on chronic combined systolic (congestive) and diastolic (congestive) heart failure; Z68.44 Body mass index [BMI] 60.0-69.9, adult; Z20.822 Contact with and (suspected) exposure to COVID-19; F32.A Depression, unspecified; I08.1 Rheumatic disorders of both mitral and tricuspid valves; I35.0 Nonrheumatic aortic (valve) stenosis; I48.0 Paroxysmal atrial fibrillation; K21.9 Gastro-esophageal reflux disease without esophagitis; F10.10 Alcohol abuse, uncomplicated; E66.01 Morbid (severe) obesity due to excess calories; R94.31 Abnormal electrocardiogram [ECG] [EKG]; Z96.651 Presence of right artificial knee joint; Z96.642 Presence of left artificial hip joint; Z98.84 Bariatric surgery status; I25.2 Old myocardial infarction; Z79.01 Long term (current) use of anticoagulants; Z79.899 Other long term (current) drug therapy
CPT/HCPCS: 36415; 71045; 71046; 80048; 80053; 82550; 82553; 83690; 83735; 83880; 84100; 84484; 85025; 92960; 93005; 93312; 94760; 96374; G0378; J1940; J2250; J2704; U0002